=== PATIENT | male | born 1975 | race Caucasian/White ===

== ENCOUNTER → 2018-11-04 13:28 | Outpatient (CLI) | payer BC, SELFPAY ==
--- NOTE | 2018-11-04 13:34 | MR_ITS ---
MR lumbar spine wo con Ordering Physician: Emmanuel Velasquez MD Patient Age: 43 years: Male HISTORY: ITS.REASON: LOW BACK PAIN low back pain for years but has gotten worse intermittent tingling at the right leg TECHNIQUE: Sagittal STIR, T1, T2, axial T1 and T2. On 1.5T Siemens wide bore MRI. 3-D MR myelogram image set obtained & performed on MRI workstation. Additional sagittal thin section T2 weighted dataset obtained from this latter acquisition as well (---76 CPT) COMPARISON :No relevant FINDINGS The vertebral bodies are intact with normal signal. No compression fracture or lesion. . Conus ends appropriately at L1 level There is slight loss of disc hydration at the L3/4 L4/5 disc. L5/S1-disc height maintained. Overall disc appears intact with only scant bulge towards the right. Moderately prominent bilateral facet arthropathy, hypertrophy L4/5. Slight loss of disc hydration. Mild degenerative disc space narrowing most evident to the right.. Disc bulge most evident to the right. Which mildly effaces the anterior right aspect thecal sac and yields mildly encroach upon the right foramen and recess. The some mild thickening posterior spurring towards right with perhaps scant less than 2 mm posterior offset of L4 on L5 to the right. Scant high signal posterior posterior disc margin to the right-unimpressive but can reflect a minor annular fissure. . Moderate facet arthropathy/hypertrophy L3/4 slight loss of disc hydration with very slight disc space narrowing.. Mild undulating disc bulge posteriorly most evident leftward. Mildly effaces the thecal sac to the left with mild encroachment into the left neural foramen L2/3 disc intact unremarkable , L1/2, T12/L1 disc intact 3-D MR myelogram image set no prominent findings. Only some mild indentation upon the thecal sac anteriorly at L4/5 slightly more evident to the right; and mild anterior indentation thecal sac at L3/4 to the left. IMPRESSION: L4/5. Disc bulge central & to the right-Mildly effaces thecal sac to the right, & yields mild encroachment right recess & right foramen.. Tiny high signal focus along posterior disc margin unimpressive but noted as but reflect very small annular fissure Moderate facet arthropathy. . L3/4. Mild undulating disc bulge most evident towards the left. Mild left foraminal encroachment L5/S1. Disc intact. Generous facet hypertrophy
== END ==
PROVIDERS: PCP Family Medicine; Visit Provider Family Medicine
DX: M54.5 Low back pain (principal)
CPT/HCPCS: 72148; 76376

== ENCOUNTER → 2018-11-18 10:31 | Outpatient (POV) | payer BC, SELFPAY ==
[2018-11-18 10:40] VITALS: BP 162/90; PULSE 80; RESP 18; O2SAT 98
--- NOTE | 2018-11-18 13:00 | HMH.PMCON ---
Assessment and Plan (1) Degenerative disc disease, lumbar Current visit: Yes Status: Chronic Category: Medical Code(s): M51.36 - Other intervertebral disc degeneration, lumbar region (2) Lumbar radiculopathy Current visit: Yes Status: Chronic Category: Medical Code(s): M54.16 - Radiculopathy, lumbar region - Assessment and plan all Dx Assessment and Plan for all problems:: We will schedule L4-L5 lumbar epidural steroid injection for the patient. Patient is failed 6 months of conservative therapy including physical therapy. He is continuing a home stretching program. He is currently on anti-inflammatories. I will follow-up with the patient after his injection and reassess his symptoms at that time. Dr. Kramer has reviewed this note and agrees with this plan of care. This note was dictated using voice recognition software and may contain errors or omissions HPI - Data of Consult Consult date: 11/18/18 Requesting Physician: Janet Montgomery APRN Primary Care Provider: Emmanuel Velasquez MD - Consult Narrative Reason for consult: Back pain History of present illness: Mr. Middleton is a 43 year old male resents today for consultation in regards to his low back pain. He rates his pain today a 5 out of 10. Patient has been in physical therapy along with chiropractic therapy with little relief. Patient is currently on anti-inflammatories. Patient states that sitting or driving long periods increased pain while laying flat or laying on his side decreases the pain. Patient does have an abnormal MRI. Patient is interested in potential injective therapy. He is not on any anticoagulation therapy. Patient states the pain radiates into his bilateral hips CC: Janet Montgomery APRN [facility] History I have reviewed the patient's past medical history: Yes Medical History: Reports:: Anxiety Other Surgeries: Yes: Other Amputation: No Fractures: No - *Social History Smoking Status: Current every day smoker Tobacco Type: cigarettes # Packs/Day (cigarettes): 1 Alcohol Intake: never Alcohol Intake Frequency:: other *Occupational Status:: other Housing: house *Travel in the last 8 weeks: None - Psychiatric History Expresses thoughts of harming self/others: None Suicide Plan Description: No Plan Pschychiatric History:: Reports:: Anxiety Family Hx:: Coronary Artery Disease Review of Systems - Review of Systems ROS General: no recent weight change, no fever, no sleep disturbances Respiratory: no cough, no shortness of air, no recurring pulmonary infections Cardiovascular/Peripheral Vascular: No chest pain, No palpitations, no edema, no shortness of breath. Gastrointestinal: no incontinence, normal bowel movements reported Genitourinary: no incontinence Musculoskeletal: Lumbar pain, hip pain Psychiatric: normal mood/ affect, Neurological: [denies weakness in extremities], [denies balance issues] Meds Home Medications Medication Instructions Recorded Confirmed Type citalopram 10 mg tablet 10 mg PO ONCE 12/03/17 History Allergies Allergy/AdvReac Type Severity Reaction Status Date / Time No Known Allergies Allergy Verified 12/12/17 08:06 Objective Vital signs: Pulse Resp BP Pulse Ox 80 18 162/90 H 98 11/18/18 10:40 11/18/18 10:40 11/18/18 10:40 11/18/18 10:40 Narrative: Physical Exam General: Alert and oriented x3, no acute distress, pleasant and cooperative, [on room air] Lungs: Resps E/U, Symmetrical chest expansion, Eyes: PERRL Musculoskeletal: Flexion and extension of lumbar spine somewhat guarded secondary to pain, deep tendon reflexes normal, strength in upper and lower extremities [5/5], slightly antalgic gait noted, positive straight leg raise test bilaterally 30 degrees Neurological: speech clear, senior management consultant equal, no gross sensory deficits Opioid Risk Tool - Opioid Risk Tool-Male Family hx alcohol abuse: Y Family hx illegal drugs: N
--- NOTE | 2018-11-18 13:03 | P.CONS_ITS ---
Assessment and Plan (1) Degenerative disc disease, lumbar Current visit: Yes Status: Chronic Category: Medical Code(s): M51.36 - Other intervertebral disc degeneration, lumbar region (2) Lumbar radiculopathy Current visit: Yes Status: Chronic Category: Medical Code(s): M54.16 - Radiculopathy, lumbar region - Assessment and plan all Dx Assessment and Plan for all problems:: We will schedule L4-L5 lumbar epidural steroid injection for the patient. Patient is failed 6 months of conservative therapy including physical therapy. He is continuing a home stretching program. He is currently on anti- inflammatories. I will follow-up with the patient after his injection and reassess his symptoms at that time. Dr. Kramer has reviewed this note and agrees with this plan of care. This note was dictated using voice recognition software and may contain errors or omissions HPI - Data of Consult Consult date: 11/18/18 Requesting Physician: Janet Montgomery APRN Primary Care Provider: Emmanuel Velasquez MD - Consult Narrative Reason for consult: Back pain History of present illness: Mr. Middleton is a 43 year old male resents today for consultation in regards to his low back pain. He rates his pain today a 5 out of 10. Patient has been in physical therapy along with chiropractic therapy with little relief. Patient is currently on anti-inflammatories. Patient states that sitting or driving long periods increased pain while laying flat or laying on his side decreases the pain. Patient does have an abnormal MRI. Patient is interested in potential injective therapy. He is not on any anticoagulation therapy. Patient states the pain radiates into his bilateral hips CC: Janet Montgomery APRN [facility] History I have reviewed the patient's past medical history: Yes Medical History: Reports:: Anxiety Other Surgeries: Yes: Other Amputation: No Fractures: No - *Social History Smoking Status: Current every day smoker Tobacco Type: cigarettes # Packs/Day (cigarettes): 1 Alcohol Intake: never Alcohol Intake Frequency:: other *Occupational Status:: other Housing: house *Travel in the last 8 weeks: None - Psychiatric History Expresses thoughts of harming self/others: None Suicide Plan Description: No Plan Pschychiatric History:: Reports:: Anxiety Family Hx:: Coronary Artery Disease Review of Systems - Review of Systems ROS General: no recent weight change, no fever, no sleep disturbances Respiratory: no cough, no shortness of air, no recurring pulmonary infections Cardiovascular/Peripheral Vascular: No chest pain, No palpitations, no edema, no shortness of breath. Gastrointestinal: no incontinence, normal bowel movements reported Genitourinary: no incontinence Musculoskeletal: Lumbar pain, hip pain Psychiatric: normal mood/ affect, Neurological: [denies weakness in extremities], [denies balance issues] Meds Home Medications Medication Instructions Recorded Confirmed Type citalopram 10 mg tablet 10 mg PO ONCE 12/03/17 History Allergies Allergy/AdvReac Type Severity Reaction Status Date / Time No Known Allergies Allergy Verified 12/12/17 08:06 Objective Vital signs: Pulse Resp BP Pulse Ox 80 18 162/90 H 98 11/18/18 10:40 11/18/18 10:40 11/18/18 10:40 11/18/18 10:40
== END ==
PROVIDERS: PCP Family Medicine; Visit Provider Clinical Nurse Specialist Family Health
DX: M51.16 Intervertebral disc disorders with radiculopathy, lumbar region (principal)
CPT/HCPCS: 99202

== ENCOUNTER → 2019-05-15 10:12 | Outpatient (POV) | payer BC, SELFPAY ==
[2019-05-15 10:35] VITALS: BP 137/90; PULSE 77; O2SAT 98; BMI 26.2
--- NOTE | 2019-05-15 12:51 | HMH.PAINSOAP ---
[facility] Pain Management SOAP Note Subjective:: Date of service 05/15/2019 Patient is a pleasant 44-year-old white male who presents today for follow-up for low back pain. Patient was seen in the clinic in November of this year for complaints of low back pain. Referred by his primary care provider at that time. Patient says that his back pain is radiating into his bilateral lower extremities. He says that it is causing him to have severe pain all the way down to his feet. He denies any numbness or tingling to his lower extremities. Patient says that he was scheduled to have a lumbar epidural steroid injection in the past, but was following up with physical therapy and chiropractic therapy, and started to get more relief. As a result, he follow up for the lumbar epidural steroid injection. Unfortunately, his pain has returned. Patient says he has had the pain since January of this year. He says that the physical therapy and chiropractic therapy is no longer getting him relief. And he says that his pain is a 7 out of 10. He says that it is constant with a dull ache in nature. He is continuing with anti-inflammatories and a home stretching program at this time. He would like to pursue injective therapy. Review of Systems General: No recent weight changes, no fever, no sleep disturbances Respiratory: No cough, no shortness of air, no recurring pulmonary infections Cardiovascular/peripheral vascular: No chest pain, no palpitations, no edema, no shortness of breath Gastrointestinal: No new onset incontinence, normal bowel movements reported Genitourinary: No new onset incontinence Musculoskeletal: Back pain, leg pain Psychiatric: Normal mood/affect Neurological: [Denies weakness in extremities], [denies balance issues] Objective:: Physical exam General: Alert and oriented x3, no acute distress, pleasant and cooperative, [on room air] Lungs: Respirations even and unlabored, symmetrical chest expansion Eyes: PERRL Musculoskeletal: Flexion and extension of lumbar spine somewhat guarded secondary to pain, deep tendon reflexes normal, strength in upper and lower extremities [5/5], slightly antalgic Neurological: Speech clear, net solutions architect equal, no gross sensory deficit Assessment:: Degenerative disc disease lumbar spine with lumbar radiculopathy Plan:: Given patient's imaging and his symptoms, I think he would benefit from a lumbar epidural steroid injection. We will schedule him for an injection at L4 and L5. The patient is not on any anticoagulation therapy. He is continue with anti-inflammatories, along with a home stretching program. We will see the patient back in the clinic following his procedure to reassess his symptoms at that time. He has been instructed to contact the clinic if he has any concerns before his next appointment. Dr. Kramer has reviewed this note and agrees with this plan of care. This note was dictated using voice recognition software and make contain errors or omissions. [facility] History Medical History: Reports:: Anxiety *Have you ever received a pneumonia vaccine?: No *Have you received a flu vaccine this season?: No Other Surgeries: Yes: Other Amputation: No Fractures: No - *Social History Smoking Status: Current every day smoker Tobacco Type: cigarettes # Packs/Day (cigarettes): 1 Alcohol Intake: never Alcohol Intake Frequency:: other *Occupational Status:: employed Housing: house *Travel in the last 8 weeks: None - Psychiatric History Pschychiatric History:: Reports:: Anxiety Family Hx:: Coronary Artery Disease
--- NOTE | 2019-05-15 12:54 | P.CONS_ITS ---
[facility] Pain Management SOAP Note Subjective:: Date of service 05/15/2019 Patient is a pleasant 44-year-old white male who presents today for follow-up for low back pain. Patient was seen in the clinic in November of this year for complaints of low back pain. Referred by his primary care provider at that time. Patient says that his back pain is radiating into his bilateral lower extremities. He says that it is causing him to have severe pain all the way down to his feet. He denies any numbness or tingling to his lower extremities. Patient says that he was scheduled to have a lumbar epidural steroid injection in the past, but was following up with physical therapy and chiropractic therapy, and started to get more relief. As a result, he follow up for the lumbar epidural steroid injection. Unfortunately, his pain has returned. Patient says he has had the pain since January of this year. He says that the physical therapy and chiropractic therapy is no longer getting him relief. And he says that his pain is a 7 out of 10. He says that it is constant with a dull ache in nature. He is continuing with anti-inflammatories and a home stretching program at this time. He would like to pursue injective therapy. Review of Systems General: No recent weight changes, no fever, no sleep disturbances Respiratory: No cough, no shortness of air, no recurring pulmonary infections Cardiovascular/peripheral vascular: No chest pain, no palpitations, no edema, no shortness of breath Gastrointestinal: No new onset incontinence, normal bowel movements reported Genitourinary: No new onset incontinence Musculoskeletal: Back pain, leg pain Psychiatric: Normal mood/affect Neurological: [Denies weakness in extremities], [denies balance issues] Objective:: Physical exam General: Alert and oriented x3, no acute distress, pleasant and cooperative, [on room air] Lungs: Respirations even and unlabored, symmetrical chest expansion Eyes: PERRL Musculoskeletal: Flexion and extension of lumbar spine somewhat guarded secondary to pain, deep tendon reflexes normal, strength in upper and lower extremities [5/5], slightly antalgic Neurological: Speech clear, continuity person equal, no gross sensory deficit Assessment:: Degenerative disc disease lumbar spine with lumbar radiculopathy Plan:: Given patient's imaging and his symptoms, I think he would benefit from a lumbar epidural steroid injection. We will schedule him for an injection at L4 and L5. The patient is not on any anticoagulation therapy. He is continue with anti- inflammatories, along with a home stretching program. We will see the patient back in the clinic following his procedure to reassess his symptoms at that time. He has been instructed to contact the clinic if he has any concerns before his next appointment. Dr. Kramer has reviewed this note and agrees with this plan of care. This note was dictated using voice recognition software and make contain errors or omissions. [facility] History Medical History: Reports:: Anxiety *Have you ever received a pneumonia vaccine?: No *Have you received a flu vaccine this season?: No Other Surgeries: Yes: Other Amputation: No Fractures: No - *Social History Smoking Status: Current every day smoker Tobacco Type: cigarettes # Packs/Day (cigarettes): 1 Alcohol Intake: never Alcohol Intake Frequency:: other *Occupational Status:: employed Housing: house *Travel in the last 8 weeks: None - Psychiatric History Pschychiatric History:: Reports:: Anxiety Family Hx:: Coronary Artery Disease
== END ==
PROVIDERS: PCP Family Medicine; Visit Provider Clinical Nurse Specialist Family Health
DX: M51.16 Intervertebral disc disorders with radiculopathy, lumbar region (principal)
CPT/HCPCS: 99212

== ENCOUNTER → 2019-07-07 11:09 | Outpatient (POV) | payer BC, SELFPAY ==
[2019-07-07 11:19] VITALS: BP 149/94; PULSE 83; RESP 18; O2SAT 98; BMI 26.7
--- NOTE | 2019-07-07 12:36 | HMH.PAINSOAP ---
[facility] Pain Management SOAP Note Subjective:: Patient is a very pleasant 44-year-old white male who presents today for follow-up after lumbar epidural steroid injection. Patient had 90% relief for over 4 days with the injection. Pain is beginning to slowly return. Patient and I discussed continuing the series of 3 epidurals he is interested in pursuing this. We will move forward with this patient rates his pain today a 5 out of 10. He is not on any anticoagulation therapy. He still trying to stay as active as possible. ROS General: no recent weight change, no fever, no sleep disturbances Respiratory: no cough, no shortness of air, no recurring pulmonary infections Cardiovascular/Peripheral Vascular: No chest pain, No palpitations, no edema, no shortness of breath. Gastrointestinal: no new onset incontinence, normal bowel movements reported Genitourinary: no new onset incontinence Musculoskeletal: Back pain, leg pain Psychiatric: normal mood/ affect, Neurological: [denies new onset weakness in extremities], [denies new onset balance issues] Objective:: Physical Exam General: Alert and oriented x3, no acute distress, pleasant and cooperative, [on room air] Lungs: Resps E/U, Symmetrical chest expansion, Eyes: PERRL Musculoskeletal: Flexion and extension of lumbar spine somewhat guarded secondary to pain, deep tendon reflexes normal, strength in upper and lower extremities [5/5], [abnormal gait noted] positive straight leg raise test bilaterally Neurological: speech clear, master motorcycle technician equal, no gross sensory deficits Assessment:: Degenerative disc disease lumbar spine with lumbar radiculopathy Plan:: We will plan a repeat L4-L5 lumbar epidural steroid injection given the efficacy of the last. We will then finish his series of 3, 3 weeks after this injection. He is not on any anticoagulation therapy and is continuing a home stretching program. He had over 80% relief from his last injection. I will follow-up with him after he has had all 3 of his epidural injections. He is been instructed to call the office if he has any issues prior to his next appointment. Dr. Kramer has reviewed this note and agrees with this plan of care. This note was dictated using voice recognition software and may contain errors or omissions [facility] History I have reviewed the patient's past medical history: Yes Medical History: Reports:: Anxiety Denies:: Cancer, Diabetes Mellitus Type 1, Seizures *Have you ever received a pneumonia vaccine?: No *Have you received a flu vaccine this season?: No Other Medical History: Denies: Blood Transfusion Reaction Other Surgeries: Yes: Other Amputation: No Fractures: No - *Social History Smoking Status: Current every day smoker Tobacco Type: cigarettes # Packs/Day (cigarettes): 1 Alcohol Intake: current Alcohol Intake Frequency:: 0-2 drinks per day *Occupational Status:: other Housing: house *Travel in the last 8 weeks: None - Psychiatric History Pschychiatric History:: Reports:: Anxiety Family Hx:: Coronary Artery Disease
--- NOTE | 2019-07-07 12:41 | P.CONS_ITS ---
[facility] Pain Management SOAP Note Subjective:: Patient is a very pleasant 44-year-old white male who presents today for follow- up after lumbar epidural steroid injection. Patient had 90% relief for over 4 days with the injection. Pain is beginning to slowly return. Patient and I discussed continuing the series of 3 epidurals he is interested in pursuing this. We will move forward with this patient rates his pain today a 5 out of 10. He is not on any anticoagulation therapy. He still trying to stay as active as possible. ROS General: no recent weight change, no fever, no sleep disturbances Respiratory: no cough, no shortness of air, no recurring pulmonary infections Cardiovascular/Peripheral Vascular: No chest pain, No palpitations, no edema, no shortness of breath. Gastrointestinal: no new onset incontinence, normal bowel movements reported Genitourinary: no new onset incontinence Musculoskeletal: Back pain, leg pain Psychiatric: normal mood/ affect, Neurological: [denies new onset weakness in extremities], [denies new onset balance issues] Objective:: Physical Exam General: Alert and oriented x3, no acute distress, pleasant and cooperative, [on room air] Lungs: Resps E/U, Symmetrical chest expansion, Eyes: PERRL Musculoskeletal: Flexion and extension of lumbar spine somewhat guarded secondary to pain, deep tendon reflexes normal, strength in upper and lower extremities [5/5], [abnormal gait noted] positive straight leg raise test bilaterally Neurological: speech clear, repairer sash and door equal, no gross sensory deficits Assessment:: Degenerative disc disease lumbar spine with lumbar radiculopathy Plan:: We will plan a repeat L4-L5 lumbar epidural steroid injection given the efficacy of the last. We will then finish his series of 3, 3 weeks after this injection. He is not on any anticoagulation therapy and is continuing a home stretching program. He had over 80% relief from his last injection. I will follow-up with him after he has had all 3 of his epidural injections. He is been instructed to call the office if he has any issues prior to his next appointment. Dr. Kramer has reviewed this note and agrees with this plan of care. This note was dictated using voice recognition software and may contain errors or omissions [facility] History I have reviewed the patient's past medical history: Yes Medical History: Reports:: Anxiety Denies:: Cancer, Diabetes Mellitus Type 1, Seizures *Have you ever received a pneumonia vaccine?: No *Have you received a flu vaccine this season?: No Other Medical History: Denies: Blood Transfusion Reaction Other Surgeries: Yes: Other Amputation: No Fractures: No - *Social History Smoking Status: Current every day smoker Tobacco Type: cigarettes # Packs/Day (cigarettes): 1 Alcohol Intake: current Alcohol Intake Frequency:: 0-2 drinks per day *Occupational Status:: other Housing: house *Travel in the last 8 weeks: None - Psychiatric History Pschychiatric History:: Reports:: Anxiety Family Hx:: Coronary Artery Disease
== END ==
PROVIDERS: PCP Family Medicine; Visit Provider Clinical Nurse Specialist Family Health
DX: M51.16 Intervertebral disc disorders with radiculopathy, lumbar region (principal)
CPT/HCPCS: 99212

== ENCOUNTER → 2019-09-09 09:20 | Outpatient (POV) | payer BC, SELFPAY ==
--- NOTE | 2019-09-09 09:45 | P.CONS_ITS ---
[facility] Pain Management SOAP Note Subjective:: Patient is a pleasant 44-year-old white male who presents today for follow-up after his epidural series of 3 injections. Patient has no pain overall doing extremely well and would like to follow-up on an as-needed basis. ROS General: no recent weight change, no fever, no sleep disturbances Respiratory: no cough, no shortness of air, no recurring pulmonary infections Cardiovascular/Peripheral Vascular: No chest pain, No palpitations, no edema, no shortness of breath. Gastrointestinal: no new onset incontinence, normal bowel movements reported Genitourinary: no new onset incontinence Musculoskeletal: Back pain at times Psychiatric: normal mood/ affect Neurological: [denies new onset weakness in extremities], [denies new onset balance issues] Objective:: Physical Exam General: Alert and oriented x3, no acute distress, pleasant and cooperative, [on room air] Lungs: Resps E/U, Symmetrical chest expansion, Eyes: PERRL Musculoskeletal: Flexion and extension of lumbar spine somewhat guarded secondary to pain, deep tendon reflexes normal, strength in upper and lower extremities [5/5], normal gait noted Neurological: speech clear, central office equipment installer equal, no gross sensory deficits Assessment:: Degenerative disc disease lumbar spine with lumbar radiculopathy Plan:: We will see the patient back on an as-needed basis. Dr. Kramer has reviewed this note and agrees with this plan of care. This note was dictated using voice recognition software and may contain errors or omissions [facility] History I have reviewed the patient's past medical history: Yes Medical History: Reports:: Anxiety Denies:: Cancer, Diabetes Mellitus Type 1, Diabetes Mellitus Type 2, Seizures *Have you ever received a pneumonia vaccine?: No *Have you received a flu vaccine this season?: No Other Medical History: Denies: Blood Transfusion Reaction Other Surgeries: Yes: Other Amputation: No Fractures: No - *Social History Smoking Status: Current every day smoker Tobacco Type: cigarettes # Packs/Day (cigarettes): 1 Alcohol Intake: current Alcohol Intake Frequency:: holidays/special occasions only *Occupational Status:: employed Housing: house Household Members: spouse, children *Travel in the last 8 weeks: None - Psychiatric History Pschychiatric History:: Reports:: Anxiety Family Hx:: Coronary Artery Disease
[2019-09-09 09:51] VITALS: BP 145/96; PULSE 86; RESP 18; O2SAT 98; BMI 25.5
== END ==
PROVIDERS: PCP Family Medicine; Visit Provider Clinical Nurse Specialist Family Health
DX: M51.16 Intervertebral disc disorders with radiculopathy, lumbar region (principal); Z72.0 Tobacco use; F41.9 Anxiety disorder, unspecified
CPT/HCPCS: 99212

== ENCOUNTER → 2020-02-05 07:40 | Outpatient (CLI) | payer BC, SELFPAY ==
--- NOTE | 2020-02-05 07:44 | MR_ITS ---
PROCEDURE: MR LUMBAR SPINE WO CON CLINICAL INDICATION: RT SIDED LBP Right-sided low back COMPARISON: SPLUMBWO MR lumbar spine wo con from 11/04/2018 TECHNIQUE: Standard multiplanar multiecho sequences are performed without contrast. 3-D MIP and myelographic images are also rendered and reviewed FINDINGS: There is normal alignment. The spinal cord ends at the L1 level. L1-L2: Unremarkable. L2-L3: Unremarkable. L3-L4: There is mild concentric bulging disc with minimal central disc protrusion very slightly eccentric toward the left with mild left lateral recess narrowing somewhat accentuated by the facet and ligamentum hypertrophy at that level. L4-5: Mild degenerative disc disease with bulging disc with a small annular fissure. There is moderate facet and ligamentum hypertrophy with mild bilateral foraminal narrowing. L5-S1: Degenerative disc disease with facet and ligamentum hypertrophy with mild bilateral foraminal narrowing. No extruded herniated disc or canal stenosis. IMPRESSION: 1. L3-L4: There is mild concentric bulging disc with minimal central disc protrusion very slightly eccentric toward the left with mild left lateral recess narrowing somewhat accentuated by the facet and ligamentum hypertrophy at that level. 2. L4-5: Mild degenerative disc disease with bulging disc with a small annular fissure. There is moderate facet and ligamentum hypertrophy with mild bilateral foraminal narrowing. 3. L5-S1: Degenerative disc disease with facet and ligamentum hypertrophy with mild bilateral foraminal narrowing. 4. No extruded herniated disc or canal stenosis Dictated by: Kelechi Palma MD 02/06/2020 13:17 Electronically signed by Kelechi Palma MD in [place] 02/06/2020 13:17
== END ==
PROVIDERS: PCP Family Medicine; Visit Provider Family Medicine
DX: M54.41 Lumbago with sciatica, right side (principal); M51.26 Other intervertebral disc displacement, lumbar region; M51.36 Other intervertebral disc degeneration, lumbar region; M47.816 Spondylosis without myelopathy or radiculopathy, lumbar region
CPT/HCPCS: 72148; 76376

== ENCOUNTER → 2023-05-01 12:00 | Outpatient (CLI) | payer BC, SELFPAY | PROVIDERS: PCP Student in an Organized Health Care Education/Training Program; Visit Provider Student in an Organized Health Care Education/Training Program | DX: M25.522 Pain in left elbow (principal); R60.9 Edema, unspecified ==

== ENCOUNTER → 2023-05-01 15:47 | Outpatient (CLI) | payer BC, SELFPAY ==
--- NOTE | 2023-05-01 15:50 | XR_ITS ---
FINAL REPORT CLINICAL HISTORY: L elbow pain, edema swelling x 3 days no injury FINDINGS: LEFT ELBOW 3 views were obtained. There is no acute fracture or dislocation. There is no joint effusion. The joint spaces are intact. There is soft tissue swelling posterior to the elbow. IMPRESSION: Swelling with no acute bony abnormality. Reviewed, Interpreted and Dictated by Bruce Riggins III, MD Transcribed by Peter James Authenticated and [facility]
[2023-05-01 18:51] LABS: Uric Acid 5.3 mg/dl (3.5-8.5)
[2023-05-01 18:56] LABS: C-Reactive Protein 10.5 mg/L (0-4)
[2023-05-01 19:03] LABS: Basophils % 0.3 % (0.1-2.0); Eosinophils # 0.1 K/mm3 (0.0-0.4); Eosinophils % 1.1 % (0.1-12.0); Hematocrit 55.3 % (42.0-52.0); Hemoglobin 17.6 g/dL (14.1-18.0); Lymphocytes # 1.7 K/mm3 (0.7-4.5); Lymphocytes % 15.2 % (10-50); Mean Corpuscular HGB Conc 31.9 g/dL (31.8-35.4); Mean Corpuscular Hemoglobin 33.3 pg (27.0-31.2); Mean Corpuscular Volume 104.2 fl (80-94); Mean Platelet Volume 10.2 fl (7.4-10.4); Monocytes # 0.4 K/mm3 (0.1-1.0); Monocytes % 3.9 % (1.7-9.3); Neutrophils # 9.2 K/mm3 (1.8-7.8); Neutrophils % 79.6 % (37.0-80.0); Platelet Count 235 K/mm3 (142-424); Red Cell Distribution Width 13.6 % (11.5-17.5); White Blood Count 11.5 K/mm3 (4.8-10.8)
[2023-05-01 20:22] LABS: Erythrocyte Sedimentation Rate 13 mm/hr (0-15)
== END ==
PROVIDERS: PCP Family Medicine; Visit Provider Student in an Organized Health Care Education/Training Program
DX: M25.522 Pain in left elbow (principal); R60.9 Edema, unspecified
CPT/HCPCS: 73080; 84550; 85025; 85651; 86140

== ENCOUNTER → 2023-05-04 11:43 | Outpatient (CLI) | payer BC, SELFPAY | PROVIDERS: PCP Family Medicine; Visit Provider Family Medicine | DX: M70.22 Olecranon bursitis, left elbow (principal); L03.114 Cellulitis of left upper limb | CPT/HCPCS: 87070; 87075; 87205 ==

== ENCOUNTER → 2023-05-17 14:26 | Outpatient (CLI) | payer BC, SELFPAY ==
--- NOTE | 2023-05-17 14:35 | XR_ITS ---
FINAL REPORT CLINICAL HISTORY: Pre Op sx on left elbow smoker COMPARISON: 08/14/2019 FINDINGS: PA and lateral views of the chest were obtained. The cardiac and mediastinal silhouettes are within normal limits. There is a new, irregular pleural-based left upper lobe opacity, mass is not excluded. There is no pleural effusion or pneumothorax. No acute osseous abnormality is identified. IMPRESSION: New left upper lobe opacity, mass is not excluded. Recommend chest CT. Reviewed, Interpreted and Dictated by Linn Ivan MD Transcribed by Betsey Valdovinos Authenticated and [facility]
--- NOTE | 2023-05-17 14:53 | ECG_ITS ---
APPROVED REPORT Exam: Resting ECG HR:77 bpm ECG Measurements Heart Rate 77 AXES ND 159 P 61 QRSd 106 QRS -46 QT 373 T 62 QTc 405 Conclusion SINUS RHYTHM WITH LAFB LAD ABNORMAL ECG UNCONFIRMED REPORT Electronically signed by : Girish Fink MD 05/17/2023 17:14:56
[2023-05-17 15:11] LABS: Basophils % 0.2 % (0.1-2.0); Eosinophils % 0.2 % (0.1-12.0); Hematocrit 55.9 % (42.0-52.0); Hemoglobin 17.9 g/dL (14.1-18.0); Lymphocytes # 1.4 K/mm3 (0.7-4.5); Lymphocytes % 8.6 % (10-50); Mean Corpuscular Hemoglobin 33.2 pg (27.0-31.2); Mean Platelet Volume 9.4 fl (7.4-10.4); Monocytes % 6.3 % (1.7-9.3); Neutrophils # 13.8 K/mm3 (1.8-7.8); Neutrophils % 84.7 % (37.0-80.0); Platelet Count 235 K/mm3 (142-424); Red Blood Count 5.38 M/mm3 (4.60-6.20); Red Cell Distribution Width 13.6 % (11.5-17.5); White Blood Count 16.3 K/mm3 (4.8-10.8)
[2023-05-17 15:18] LABS: MANUAL DIFFERENTIAL MANUAL DIFFERENTIAL (MANUAL DIFF)
[2023-05-17 15:47] LABS: Alanine Aminotransferase 38 U/L (12-78); Albumin Level 4.2 g/dl (3.5-5.0); Albumin/Globulin Ratio 1.2 (1.1-1.8); Alkaline Phosphatase 111 U/L (38-126); Anion Gap 10.4 mEq/L (5-15); Aspartate Amino Transferase 41 U/L (17-59); Bilirubin,Total 0.5 mg/dl (0.2-1.3); Blood Urea Nitrogen 18 mg/dl (9-20); Calcium 9.4 mg/dl (8.4-10.2); Carbon Dioxide 28 mmol/L (22.0-30.0); Chloride 105 mmol/L (98-107); Estimated Glomerular Filt Rate 103 ml/min (>60); GFR (African American) 124 ML/MIN (>60); Globulin 3.5 g/dL (1.3-3.2); Glucose 120 mg/dl (74-100); Potassium 4.4 mmoL/L (3.5-5.1); Sodium 139 mmol/L (136-145); Total Protein,Serum 7.7 g/dl (6.3-8.2)
[2023-05-17 18:23] LABS: Lymphocytes % 15 % (10-50); Macrocytosis 1+; Monocytes % 5 % (2-9); Neutrophils % 80 % (42-76); Platelet Estimate Normal; Total Cells Counted 100
== END ==
PROVIDERS: PCP Family Medicine; Visit Provider Orthopaedic Surgery
DX: Z01.818 Encounter for other preprocedural examination (principal)
CPT/HCPCS: 36415; 71046; 80053; 85007; 85025; 93005

== ENCOUNTER 2023-05-23 10:19 | Day surgery (SDC) | payer BC, SELFPAY ==
--- NOTE | 2023-05-22 09:03 | SUR.PREOP ---
Left a message with ELY in [facility] office regarding patients, abnormal CXR and elevated white count. She will relay this message to MD [facility] and call preop staff back regarding POC
[2023-05-22 10:21] VITALS: BMI 28.0
[2023-05-23] VITALS (9 sets, daily range): BP systolic 109–162; BP diastolic 75–99; PULSE 78–92; RESP 11–18; TEMP 36.2–36.9; O2SAT 92–97
--- NOTE | 2023-05-23 11:03 | EXP.ANES.CKL ---
[facility] Disclaimer: The information contained in this section may have been updated after the patient was seen, as this information can be updated by other users. Medical History Anxiety Degenerative disc disease, lumbar Lumbar radiculopathy Tobacco use Surgical History H/O removal of cyst H/O vasectomy No significant past surgical history Family History Family/Other Coronary artery disease Social History (Updated 05/23/23 @ 10:47 by Martina Negrete RN) Smoking Status: Current every day smoker tobacco type: cigarettes packs per day: 1 years smoked: 20 second hand exposure: Yes alcohol intake: never substance use type: denies use current occupational status: employed Travel in the last 8 weeks: None caregiver/support person: No foster care: No household members: spouse and children housing: house lives independently: Yes marital status: long-term: No Hx Recent Travel: No sexually active: Yes caffeine: Yes [facility] Anesthesia Checklist Structural Data Admitted From: Home Planned Operative Procedure/s: Excision of Left Olecrenon Bursa Consent for Planned Operative Procedure(s) Verified: Yes Verified Documents: Surgical Consent and History and Physical NPO Status Verified Time NPO: 00:00 Additional verifications Anesthesia Reactions: No Hx Blood Transfusions: No Blood Transfusion Reaction: No Airway Assessment Mallampati Score:: Class II C-Spine Mobility Assessed: Yes TMJ Mobility Assessed: Yes Dentition: Good Dentition Neurological Assessment Level of Consciousness: Awake and Alert Anesthesia Plan Anesthesia Risk discussed: Yes Anesthesia Plan: Verified ASA Class: II Anesthesia Type: General
--- NOTE | 2023-05-23 13:31 | EXP.OP.NOTE ---
Date of procedure: 05/23/23 Pre-op Diagnosis:: Left elbow septic olecranon bursitis Post-op Diagnosis:: Same Procedure performed:: 1. Irrigation and sharp debridement left elbow #2 excisional left elbow olecranon bursa Surgeon:: Quintin Samaniego DO [employer] ADMINISTRATOR:: Kurt Montemayor Anesthesia: GETA Estimated blood loss (mL): 10 Operative findings:: Surrounding cellulitis with inflamed olecranon bursa without norah abscess Operative note:: Patient was identified preoperatively. Left elbow marked yes my initials. Transported operative suite. Placed upon operating bed with a hand table. Left elbow was then prepped and draped normal sterile fashion. Once prepped and draped final operative timeout performed to identify proper patient procedure and extremity. Everyone involved the case agreed. No count indication beginning. Did receive preoperative antibiotics. Marking pen was used to make plan incision over the open wound of the elbow and incorporating the previous sophie incision. Extremity was elevated and tourniquet was inflated but did not exsanguinate due to cellulitis. Skin knife is used to incise through skin skin was very fragile in this area there has been pressure over this area for over the significant swelling of the skin was very thin and infected around the tip of the elbow. This was excised sharply with a knife to remove the infected skin. Curette was placed and rongeur was used to remove olecranon bursa and copious irrigation was performed with the Pulsavac. Continue debridement with rongeur and sharply with a knife was performed until all contaminated olecranon bursa was excised. Irrigation repeated. The skin edges around the open wound on the elbow were excised. Irrigation repeated again. And then skin was closed with nylon stitch. Local anesthesia infiltrated around the incision and sterile dressing placed patient waken anesthesia taken recovery stable condition. Condition: stable Disposition: PACU Complications:: None apparent
--- NOTE | 2023-05-23 13:35 | P.PNANES_ITS ---
[facility] Anesthesia Record Part I Anesthesia Record I Intake, IV Amount: 1,000 Hydration: Adequate Estimated blood loss (mL): 5 Urine output (mL): 0 Blood Products used (#): none Blood Pressure: 109/75 SaO2: 92 Pulse Rate: 79 Airway Patency: Patent Respiratory Rate: 16 Temperature: 98.2 F Patient is:: Drowsy and Stable Stable to PACU at:: 13:30
--- NOTE | 2023-05-24 07:32 | P.PNANES_ITS ---
[facility] Anesthesia Record Part II Anesthesia Record Part II Discharge Time: 14:00 Destination: Surgical Day Care (OP Surgery) PACU nurse assessment reviewed?: Yes Patient Condition:: Good Anesthesia Complications:: None Swallowing reflex intact?: Yes Airway Patency: Patent Cyanosis?: No Blood Pressure: 153/97 SaO2: 93 Respiratory Rate: 12 Pulse Rate: 78 Temperature: 97.2 F Mental Status: Alert & Oriented Pain level:: 0 Nausea and/or vomitting:: None Intake, IV Amount: 0 Hydration: Adequate
[2023-05-24 07:33] VITALS: BP 153/97; PULSE 78; RESP 12; TEMP 36.2; O2SAT 93
== END 2023-05-23 14:27 | disposition home or self-care (01) ==
PROVIDERS: PCP Family Medicine; Visit Provider Orthopaedic Surgery
PROC: (CPT 24105; principal; 2023-05-23 12:00)
DX: M70.22 Olecranon bursitis, left elbow (principal); F17.210 Nicotine dependence, cigarettes, uncomplicated; Z79.899 Other long term (current) drug therapy
CPT/HCPCS: 24105; 96374; J2405

== ENCOUNTER 2024-05-21 15:06 | Outpatient (CLI) | payer BC, SELFPAY ==
--- NOTE | 2024-05-21 15:09 | XR_ITS ---
FINAL REPORT CLINICAL HISTORY: left elbow ap and lateral COMPARISON: 05/01/2023 FINDINGS: LEFT ELBOW: 3 images of the left elbow were obtained. There is no evidence of fracture or dislocation. The joint spaces are intact. There is no soft tissue abnormality identified. IMPRESSION: No acute bony abnormality. Reviewed, Interpreted and Dictated by Silas Villa MD Transcribed by Olga Lidia Brian Authenticated and [facility]
== END 2024-05-21 23:59 | disposition home or self-care (01) ==
LOC: RAD 15:07
PROVIDERS: PCP Family Medicine; Visit Provider Physician Assistant
DX: M25.522 Pain in left elbow (principal)
CPT/HCPCS: 73080

== ENCOUNTER 2024-07-18 16:57 | Emergency (ER) | payer BC, SELFPAY ==
--- OUTSIDE RECORDS SUMMARY | 2024-07-18 17:02 | XMS_ITS | Clinical Summary ---
Author Organization [facility] Address [address] [place] [address] Care Team Providers Care Sampling Theory Teacher Name Role Phone Emmanuel Velasquez MD Primary Care Provider + [phone] Allergies No known active allergies Medications citalopram (CeleXA) 40 MG tablet Take 40 mg by mouth Daily. 12/09/2019 Active traZODone (DESYREL) 100 MG tablet Take 100 mg by mouth Daily. 02/09/2020 Active celecoxib (CeleBREX) 200 MG capsule Take 200 mg by mouth Daily. 02/23/2020 Active Active Problems No known active problems Family History Medical History Relation Name Comments No Known Problems Father No Known Problems Mother Relation Name Status Comments Father Mother Social History Tobacco Use Types Packs/Day Years Used Date Smoking Tobacco: Every Day Cigarettes Smokeless Tobacco: Never Alcohol Use Standard Drinks/Week Comments Yes 0 (1 standard drink = 0.6 oz pur e alcohol) Abuse Screen Answer Date Recorded Unsafe at Home or Work/School Not on file Feels Threatened by Someone? Not on file 07/2023 Does Anyone Keep You from Co ntacting Others or Doint Things Outside the Home? Not on file 05/31/2023 Physical Sign of Abuse Present Not on file 1 Housing Stability Answer Date Recorded Current Living Arrangements Not on file 05/20 Potentially Unsafe Housing Conditions Not on jyothi e 05/31/2023 Family and Community Support Answer Silver e Recorded Help with Day-to-Day Activities Not on file 05/31/2023 Lonely or Isolated Not on file 05/31/2023 Employment Answer Date Recorded Do you want help finding or keeping work or a lexus b? Not on file 05/31/2023 Disabilities Answer Date Recorded Concentrating, Remembering, or Making Decisions Difficulty Not on file 05/31/2023 Doing Errands Independently Difficulty Not on fi le 05/31/2023 Education Answer Date Recorded Help with school or training? Not on file Preferred Language Not on file 05/31/2023 Sex and Gender Information Value Date Recorded Sex Assigned at Not on file Legal Sex Male 3:45 PM EDT Gender Identity Not on file Sexual Orientation Not on file Last Filed Vital Signs Vital Sign Reading Time Taken Comments Blood Pressure - - Pulse - - Temperature 37.1 ??C (98.7 ??F) 02/25/2020 2:53 PM ED T Respiratory Rate - - Oxygen Saturation - - Inhaled Oxygen Concentration - - Weight 100 kg (220 lb 12.8 oz) 02/25/2020 2:53 P M EDT Height 193 cm (6' 4 ) 02/25/2020 2:53 PM EDT Body Mass Index 26.88 02/25/2020 2:53 PM EDT Plan of Treatment Health Maintenance Due Date Last Done Comments COLOGUARD 1975 COLON CANCER SCREENING 5 YEA R SIGMOIDOSCOPY 1975 COLONOSCOPY 1974 [address] CANCER SCREENING 1974 CT COLONOGRAPHY 1974 FECAL OCCULT BLOOD TEST 1974 FIT Testing (1 year) 1975 Pneumococcal Vaccine 0-64 (1 of 2 - PCV) 02/23/1980 ANNUAL PHYSICAL 02/24/2020 HEPATITIS C SCREENING 02/24/2020 ZOSTER VACCINE (1 of 2) 02/23/2024 INFLUENZA VACCINE 03/20/2024 COVID-19 Vaccine ( - season) 2024 TDAP/TD VACCINES (3 - Td or Tdap) 05/21/2029 019, 05/16/2016 Insurance PPO Member Subscriber Plan / Payer (Ef fective 2018-Present) Name:Og Bales Relation to Subscriber:Spouse Name:PARIS BALES Date of :1975 Address: [address] [place] [address] Payer ID:[id number] (NAIC) Type:Not on file Address: [facility] [id number] [place] [id number] Care Teams Sampling Theory Teacher Relationship Specialty Start Date End Date Emmanuel Velasquez MD [address] [place] [id number] PCP - General Family Medicine 02/16/20
--- OUTSIDE RECORDS SUMMARY | 2024-07-18 17:02 | XMS_ITS | Encounter Summary ---
Author Organization [facility] Address [address] [place] [address] Care Team Providers Care Precision Machinist Name Role Phone Emmanuel Velasquez MD Primary Care Provider + [phone] Reason for Visit * Reason Comments Back Pain Rib Pain right * Consultation (Routine) - Closed Specialty Diagnoses / Procedures Referred By Nuha farley Referred To Contact Neurosurgery Diagnoses DDD (degenerative disc disease), lumbar L DDD Procedures CONSULTATION [place], [place] [address] [place] [address] Phone: tel: fax: Emerson Adorno MD [address] [place] [id number] Phone: tel: fax: Referral ID Status Reason Start Date Expiration Date Visits Re quested Visits Authorized [id number] Closed 02/13/2020 02/12/2021 1 1 Encounter Details Date Type Department Care Team (Late st Contact Info) Description 02/25/2020 2:40 PM EDT Office Visit [facility] [address] [id number] Emerson Adorno MD [address] [place] [address] Mechanical back pain (Primary Dx); Facet arthropathy Social History Tobacco Use Types Packs/Day Years Used Date Smoking Tobacco: Every Day Cigarettes Smokeless Tobacco: Never Alcohol Use Standard Drinks/Week Comments Yes 0 (1 standard drink = 0.6 oz pur e alcohol) Sex and Gender Information Value Date Recorded Sex Assigned at Not on file Legal Sex Male 3:45 PM EDT Gender Identity Not on file Sexual Orientation Not on file documented as of this encounter Last Filed Vital Signs Vital Sign Reading [...] Mass Index 26.88 02/25/2020 2:53 PM EDT documented in this encounter Progress Notes * Emerson Adorno MD - 02/25/2020 2:40 PM EDT Patient: Og Middleton : 1975 Primary Care Provider: Emmanuel Velasquez MD Requesting Provider: As above History Chief Complaint: 1. Chronic low back pain. 2. Right rib pain. 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 He has no leg symptoms including pain, weakness, sensory alteration. He is better lying flat. Chiropractic has been helpful. He is worse if he lies down too long or sits too long. Last July he was tossing wooden pallets and developed right flank pain that has persisted. That improves with chiropractic but then the symptoms recur. Review of Systems Constitutional: Negative for activity change, appetite change, chills, diaphoresis, fatigue, fever and unexpected weight change. HENT: Negative for congestion, dental problem, drooling, ear discharge, ear pain, facial swelling, hearing loss, mouth sores, nosebleeds, postnasal drip, rhinorrhea, sinus pressure, sneezing, sore throat, tinnitus, trouble swallowing and voice change. Eyes: Negative for photophobia, pain, discharge, redness, itching and visual disturbance. Respiratory: Positive for apnea. Negative for cough, choking, chest tightness, shortness of breath,wheezing and stridor. Cardiovascular: Negative for chest pain, palpitations and leg swelling. Gastrointestinal: Negative for abdominal distention, abdominal pain, anal bleeding, blood in stool,constipation, diarrhea, nausea, rectal pain and vomiting. Endocrine: Negative for cold intolerance, heat intolerance, polydipsia, polyphagia and polyuria. Genitourinary: Positive for flank pain. Negative for decreased urine volume, difficulty urinating, dysuria, enuresis, frequency, genital sores, hematuria and urgency. Musculoskeletal: Positive for back pain and myalgias. Negative for arthralgias, gait problem, jointswelling, neck pain and neck stiffness. Skin: Negative for color change, pallor, rash and wound. Allergic/Immunologic: Negative for environmental allergies, food allergies and immunocompromised state. Neurological: Negative for dizziness, tremors, seizures, syncope, facial asymmetry, speech difficulty, weakness, light-headedness, numbness and headaches. Hematological: Negative for adenopathy. Does not bruise/bleed easily. Psychiatric/Behavioral: Negative for agitation, behavioral problems, confusion, decreased concentration, dysphoric mood, hallucinations, self-injury, sleep disturbance and suicidal ideas. The patientis hyperactive. The patient is not nervous/anxious. All other systems reviewed and are negative. The patient's past medical history, past surgical history, family history, and social history have been reviewed at length in the electronic medical record. Physical Exam: Temp 98.7 ??F (37.1 ??C) (Temporal) Ht 193 cm (76 ) Wt 100 kg (220 lb 12.8 oz) BMI 26.88 kg/m?? CONSTITUTIONAL: Patient is well-nourished, pleasant and appears stated age. CV: Heart regular rate and rhythm without murmur, rub, or gallop. PULMONARY: Lungs are clear to ascultation. MUSCULOSKELETAL: Straight leg raising is negative. Manny's Sign is negative. ROM in back normal. Tenderness in the back to palpation is not observed. NEUROLOGICAL: Orientation, memory, attention span, language function, and cognition have been examined and are intact. Strength is intact in the lower extremities to direct testing. Muscle tone is normal throughout. Station and gait are normal. Sensation is intact to light touch testing throughout. Deep tendon reflexes are 1+ and symmetrical. Coordination is intact. Medical Decision Making Data Review: MRI of the lumbar spine demonstrates diffuse degenerative disc disease and facet arthropathy. An annular fissure is noted at L4-5. There is no significant canal or root compromise. Diagnosis: 1. Mechanical low back pain. 2. Probable myofascial right chest wall pain. Treatment Options: He has been started on Celebrex just a couple of days ago and I am hopeful that that will help to diminish his symptoms. Otherwise I would continue symptomatic treatment. Currently I do not see a role for surgical intervention. Diagnosis Plan 1. Mechanical back pain 2. Facet arthropathy Scribed for Emerson Adorno MD by Kristin Rogers CMA on 02/25/2020 15:16 I, Dr. Adorno, personally performed the services described in the documentation, as scribed in my presence, and it is both accurate and complete. documented in this encounter Plan of Treatment Not on file documented as of this encounter Visit Diagnoses Diagnosis Mechanical back pain- Primary Facet arthropathy Spondylosis of unspecified site without mention of myelopathy documented in this encounter Care Teams Precision Machinist Relationship Specialty Start Date End Date Emmanuel Velasquez MD [address] [facility] [address] [facility] [address] [place] [id number] PCP - General Family Medicine 02/16/20 documented as of this encounter
--- NOTE | 2024-07-18 17:03 | XR_ITS ---
PROCEDURE INFORMATION: Exam: XR Right Elbow Exam date and time: 07/18/2024 5:02 PM Age: 49 years old Clinical indication: Injury or trauma; Other: Hit on tractor door; Blunt trauma (contusions or hematomas); Elbow; Right; Additional info: Injury, hit elbow on metal door, swelling TECHNIQUE: Imaging protocol: Radiologic exam of the right elbow. Views: 3 or more views. COMPARISON: No relevant prior studies available. FINDINGS: Bones/joints: Small right elbow effusion. On the lateral view, there is suspicion of a minimally displaced fracture of the coronoid process of the ulna. No other fractures are identified. There is a bone spur at the tip of the olecranon. Soft tissues: Soft tissue swelling of the dorsum of the right elbow. IMPRESSION: 1. Suspicion of a coronoid process fracture of the ulna (on the lateral view). 2. Small right elbow effusion and soft tissue swelling of the dorsum of the right elbow.
[2024-07-18 17:22] VITALS: BP 175/102; PULSE 89; RESP 20; TEMP 36.8; O2SAT 96; BMI 27.3
--- NOTE | 2024-07-18 17:42 | EXP.UTC ---
Discharge Plan Disposition Patient Disposition: Home, Self-Care Condition: Good Prescriptions Prescriptions: New prednisone 10 mg tablet 10 mg PO DIRECTED 9 Days Qty: 14 0RF Rx Instructions: Take 4 tablets daily for 2 days, then take 2 tablets daily for 2 days, then take 1 tablet daily for 2 days, then stop. azithromycin [Zithromax] 250 mg tablet 250 mg PO UD DOSE PK Qty: 6 0RF Rx Instructions: Take two (2) tablets today, then one (1) tablet days #2 thru #5 ibuprofen 600 mg tablet 600 mg PO Q6HP PRN (Reason: Mild Pain) Qty: 30 0RF No Action citalopram 10 mg tablet 20 mg PO ONCE Referrals Follow up/Referrals: Emmanuel Velasquez MD [Primary Care Provider] - See instructions Aranza Smith DPM [Staff Physician] - See instructions Activity Restrictions/Add. Instructions Additional Instructions/Restrictions: Rest the extremity, apply ice for 15 minutes as tolerated three or four times per day, Elevate the extremity as tolerated while you are resting. Take ibuprofen for pain. I sent in a prescription to your pharmacy. Follow up with Dr. Samaniego (orthopedics). I put in a referral but you need to call his office and schedule an appointment. His office phone number will be on this paperwork. Follow up with your regular doctor. GO TO THE ER FOR ANY WORSENING SYMPTOMS Clinical Impressions Clinical Impression: Closed fracture of right elbow, Serous otitis media Instructions Patient Instructions: Middle Ear Infection, DI for Elbow Fracture Print Language Print Language: Croatian Discharge ED Provider: Flaco Perez [facility] HPI General Stated complaint: AO 07/18 @1100, right elbow pain Mode of Arrival: Ambulatory Source of Information: Patient Time Seen by Provider: 07/18/24 17:42 Description of Symptoms (Recalled from Triage Doc. by RN): RIGHT ELBOW RED AND SWOLLEN, HIT IT ON TRACTOR DOOR, ALSO WANTS SOMEONE TO LOOK AT LEFT EAR HEENT Symptoms (Recalled from RN notes): No Resp Symptoms (Recalled from RN notes): No Skin Symptoms (Recalled from RN notes): No MS Symptoms (Recalled from RN notes): Yes Functional Status (Recalled from RN notes): HURTS TO MOVE ELBOW Related Data Home Medications ?Medication ?Instructions ?Recorded ?Confirmed citalopram 10 mg tablet 20 mg PO ONCE Anxiety 12/03/17 07/18/24 Previous Rx's ?Medication ?Instructions ?Recorded azithromycin 250 mg tablet 250 mg PO UD DOSE PK #6 tabs 07/18/24 (Zithromax) ibuprofen 600 mg tablet 600 mg PO Q6HP PRN Mild Pain #30 07/18/24 tabs prednisone 10 mg tablet 10 mg PO DIRECTED 9 days #14 07/18/24 tabs Allergies Allergy/AdvReac Type Severity Reaction Status Date / Time No Known Allergies Allergy Verified 06/03/24 13:39 Worker's Comp Is this a Worker's Comp case?: No PFSH [facility] Disclaimer: The information contained in this section may have been updated after the patient was seen, as this information can be updated by other users. Medical History Tobacco use Anxiety Lumbar radiculopathy Degenerative disc disease, lumbar Surgical History H/O removal of cyst groin H/O vasectomy No significant past surgical history Family History Family/Other Coronary artery disease Social History Smoking Status: Current every day smoker tobacco type: cigarettes packs per day: 1 years smoked: 20 second hand exposure: Yes alcohol intake: never substance use type: denies use current occupational status: employed caregiver/support person: No foster care: No household members: spouse and children housing: house lives independently: Yes marital status: fpc: No Recent Travel: No sexually active: Yes caffeine: Yes ROS Obtained: Yes All systems reviewed & no additional complaints except as documented Constitutional Constitutional: Reports chills and Reports fever(s) Eyes Eyes: Denies eye discharge ENT Ears, Nose, Mouth, and Throat: Reports as per HPI Cardiovascular Cardiovascular: Denies chest pain Respiratory Respiratory: Denies chest congestion and Reports cough Gastrointestinal Gastrointestingal: Reports nausea; Denies abdominal pain, constipation, cramping, diarrhea or vomiting Musculoskeletal Musculoskeletal: Denies arthralgias Integumentary/Breasts Skin/Breast: Denies rash Neurologic Neurologic: Denies paresthesias Physical Exam General General appearance: alert and in no apparent distress Eye Eye exam: Present normal appearance, PERRL and EOMI ENT ENT exam: Present mucous membranes moist and normal external ear exam Expanded ENT Exam External ear exam: Present normal external inspection TM/Canal exam: Bilateral TM: erythema and bulging Nose exam: Absent sinus tenderness Nasal speculum exam: Bilateral: normal Mouth exam: Present normal external inspection; Absent drooling Teeth exam: Present normal inspection Throat exam: Present tonsillar erythema and tonsillomegaly Neck Neck exam: Present normal inspection, full ROM and trachea midline; Absent tenderness, lymphadenopathy or thyromegaly Chest Chest inspection: Present normal inspection and symmetric chest wall rise; Absent tenderness or rash Respiratory Respiratory exam: Present normal lung sounds bilaterally; Absent respiratory distress, wheezes, stridor or accessory muscle use Cardiovascular Cardiovascular exam: Present regular rate, normal rhythm and normal heart sounds Abdominal Exam Abdominal exam: Present soft; Absent distention, tenderness, guarding, rebound or rigidity Extremities Exam Extremities exam: Present normal inspection, full ROM and normal capillary refill; Absent tenderness or calf tenderness Back Exam Back exam: Present normal inspection and full ROM; Absent tenderness Neurological Exam Neurological exam: Present alert and oriented X3 Psychiatric Psychiatric exam: Present normal affect and normal mood Skin Skin exam: Present warm, dry, intact and normal color Lymphatic Lymphatic Findings: no adenopathy Medical Decision Making Medical Records Medical records reviewed: No I reviewed the patient's medical records. Screening: Per USPSTF and CDC recommendations, given the prevalence of disease in our region, it is our hospital?s policy to screen for HIV and viral Hepatitis for all patients aged 18 and over and those with ongoing risk factors. Doug Inquiry Pt receiving controlled substance: No Vital Signs: 07/18/24 17:22 Temperature 98.2 F Temperature Source Oral Pulse Rate [Left Radial] 89 Respiratory Rate 20 Blood Pressure [Left Arm] 175/102 H Blood Pressure Mean [Left Arm] 126 02 Sat by Pulse Oximetry 96 Orders (Tests/Meds): ORDERS Category Date Time Status Elbow XR right minimum 3 views [XR elbow RT min 3V] Exams 07/18/24 17:03 Taken Stat
[2024-07-18 18:53] VITALS: BP 175/100; PULSE 89; RESP 20; TEMP 36.8
== END 2024-07-18 18:58 | disposition home or self-care (01) ==
PROVIDERS: Emergency Provider Nurse Practitioner Family; PCP Family Medicine
DX: S52.101A Unspecified fracture of upper end of right radius, initial encounter for closed fracture (principal); H65.93 Unspecified nonsuppurative otitis media, bilateral; W22.8XXA Striking against or struck by other objects, initial encounter
CPT/HCPCS: 73080; 99213; G0381

== ENCOUNTER 2024-07-29 13:04 | Outpatient (CLI) | payer BC, SELFPAY ==
--- NOTE | 2024-07-29 13:07 | XR_ITS ---
FINAL REPORT CLINICAL HISTORY: rt elbow fx COMPARISON: 07/18/2024 FINDINGS: RIGHT ELBOW 3 views were obtained. There is a small bony fragment adjacent to the coronoid process which may represent a small avulsion fracture of uncertain age. There is a calcification near the insertion of the triceps tendon. The lateral view is rotated, therefore evaluation for joint effusion is limited. The joint spaces are intact. There is no soft tissue abnormality. IMPRESSION: Bony fragment adjacent to the coronoid process may represent a small avulsion fracture of uncertain age. Reviewed, Interpreted and Dictated by Bruce Riggins III, MD Transcribed by Starla Topete Authenticated and [facility]
--- OUTSIDE RECORDS SUMMARY | 2024-07-29 23:20 | XMS_ITS | Clinical Summary ---
Author Organization [facility] Address [address] [place] [address] Care Team Providers Care Corporate Administrator Name Role Phone Emmanuel Velasquez MD Primary Care Provider + [phone] Allergies No known active allergies Medications citalopram [...] ANNUAL PHYSICAL 02/24/2020 HEPATITIS C SCREENING 02/24/2020 INFLUENZA VACCINE 02/18/2024 ZOSTER VACCINE (1 of 2) 02/23/2024 COVID-19 Vaccine ( - season) 2024 TDAP/TD VACCINES (3 - Td or Tdap) 05/21/2029 019, 05/16/2016 Insurance PPO Member Subscriber Plan / Payer (Ef fective 2018-Present) Name:Og Bales Relation to Subscriber:Spouse Name:PARIS BALES Date of :1975 Address: [address] [place] [address] Payer ID:[id number] (NAIC) Type:Not on file Address: [facility] [id number] [place] [id number] Care Teams Corporate Administrator Relationship Specialty Start Date End Date Emmanuel Velasquez MD [address] [place] [id number] PCP - General Family Medicine 02/16/20
--- OUTSIDE RECORDS SUMMARY | 2024-07-29 23:20 | XMS_ITS | Encounter Summary ---
Author Organization [facility] Address [address] [place] [address] Care Team Providers Care Transport Medic Name Role Phone Emmanuel Velasquez MD Primary Care Provider + [phone] Reason for Visit * Reason Comments Back Pain Rib Pain right * Consultation (Routine) - Closed Specialty Diagnoses / Procedures Referred By Nuha farley Referred To Contact Neurosurgery Diagnoses DDD (degenerative disc disease), lumbar L DDD Procedures CONSULTATION Maurice Perez, PA [address] [place] [address] Phone: tel: fax: Emerson Adorno MD [address] [place] [id number] Phone: tel: fax: Referral ID Status Reason Start Date Expiration Date Visits Re quested Visits Authorized [id number] Closed 02/13/2020 02/12/2021 1 1 Encounter Details Date Type Department Care Team (Late st Contact Info) Description 02/25/2020 2:40 PM EDT Office Visit [facility] [address] [phone] Emerson Adorno MD [address] [place] [address] Mechanical back pain (Primary Dx); Facet arthropathy [...] Present Illness: 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
== END 2024-07-29 23:59 | disposition home or self-care (01) ==
LOC: RAD 13:05
PROVIDERS: PCP Family Medicine; Visit Provider Orthopaedic Surgery
DX: M71.121 Other infective bursitis, right elbow (principal)
CPT/HCPCS: 73080